=== PATIENT | male | born 1980 | race Two or more races ===

== ENCOUNTER 2016-03-15 20:22 | Emergency (ER) | payer SELFPAY ==
[2016-03-15 20:33] VITALS: TEMP 98.1; BMI 25.0
--- NOTE | 2016-03-15 20:39 | EDPRACDOC ---
- General Information Chief Complaint: Chest Pain Stated Complaint: CHEST PAIN Information Source: Patient Mode of Arrival: Car Home Medications: Home Medications Ibuprofen Tablet [Motrin] 600 mg PO Q6 #30 tablet 02/24/16 Ketorolac Tromethamine [Toradol] 10 mg PO Q6H PRN #10 tab 03/15/16 Allergies/Adverse Reactions: Allergies Allergy/AdvReac Type Severity Reaction Status Date / Time shellfish derived Allergy Severe throat Verified 02/24/16 17:55 edema iodine Allergy Hives* Verified 02/24/16 17:55 - History of Present Illness Onset: long time HPI: 3 TIMES A DAY, NEARLY EVERY DAY FOR THE PAST 6 MONTHS. MULTIPLE ED VISITS FOR THE SAME WITHOUT A DIAGNOSIS BEEN MADE. HAS FOLLOW-UP WITH CARDIOLOGY WHICH WAS UNREVEALING WELL. NO ALLEVIATING OR AGGRAVATING FACTORS, NO PALPITATIONS, BUT HE DOES FEEL VERY ANXIOUS WITH THIS. Chest Pain Location: Reports: Substernal Pain Radiation: Reports: None Symptoms Occur: Reports: Gradually, At Rest, With light exertion ED Past Medical History - History Reviewed Yes Nurses notes reviewed and agree except as marked - Patient Medical History Psychological History: Reports: Depression - Social Medical History Smoking Status: Former smoker ETOH: None Substance Abuse: None Lives With: Significant Other Lives In: Home EDM Review of Systems - Review of Systems ROS Negative Except as Marked: Yes All systems reviewed and were negative except as marked - Physical Exam Constitutional: Alert (Awake), Distress (ANXIOUS). negative: Well nourished, Well appearing Oriented to: Time, Person, Place Last recorded Vital Signs: Last Vital Signs Temp 98.1 F 03/15/16 20:25 Pulse 87 03/15/16 20:25 Resp 20 03/15/16 20:25 BP 137/82 03/15/16 20:34 Pulse Ox 100 03/15/16 20:25 Oxygen Pulse Oxygen Saturation 100 O2 Device Nasal Cannula Oxygen Flow Rate Fraction of Inspired Oxygen ( FIO2) - HEENT Head: Normal ( normocephalic) Eye Exam: Normal (PERRL, EOMI, Sclera white) Oropharynx: Normal (Pharynx:Moist without exudate,Gums-no swelling) Nose: No Symptoms Reported (septum midline) Neck: Normal (FROM, trachea at midline) - Respiratory/Cardiovascular Respiratory: Normal - CTA (BBS clear to auscultation without adventitious sounds ) Cardiovascular: Normal (RRR without murmur, gallop or rub) - GI Auscultation: Normal (NABS) Palpation: Normal (Soft,No rebound or guarding, non distended) Tenderness: Non tender Pete's Sign: Negative - Musculoskeletal Back: Normal (Non-Tender) Extremities: Normal (Normal tone, Pulses 2+ No cyanosis or edema, FROM) - Integumentary Skin: Normal, Warm, Dry Lymphatics: Normal (no adenopathy) - Neurologic Memory Impaired: Normal Motor Function: Normal (Normal tone, Pulses 2+ No cyanosis or edema, FROM) Cranial Nerve: Normal (CN II-X11 intact sensation, strength 5/5) Cerebellar: Normal Mood Description: Normal Perception: Normal - Action ASA given in the ED: No Aspirin therapy held due to: Other-specify below* - Results 03/15/16 20:36 03/15/16 20:36 - EKG EKG #1 EKG Time: 20:31 -: Yes EKG interpreted by me Rate: bpm: 97 [place]: Normal Rhythm: NSR Block: 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) Hypertrophy: None ST: Normal Comparison: 12/25/14 (NO SIG CHANGE) - Diagnostic Imaging Chest Image interpreted by: , Radiologist Patient Name: CIELO CORNEJO Courtesy Copy to: Diagnostic Imaging Report [facility] [address] [id number] [phone] Diagnostic Imaging Services Courtesy Copy to: Diagnostic Imaging Report Patient Name: CIELO CORNEJO LOC: ED : 1980 AGE: 35 Order Date:03/15/16 Date of Service:10/22 Report # [id number] Ord Physician: Katie Myles MD Exam # [id number] Emergency Physician: Katie Myles MD Exam(s): [id number] CT/CT CHEST W/O CM CLINICAL DATA: Chest pain. Symptoms for 6 months. Nausea and shortness of breath. EXAM: CT CHEST WITHOUT CONTRAST TECHNIQUE: Multidetector CT imaging of the chest was performed following the standard protocol without IV contrast. COMPARISON: Radiographs earlier this day FINDINGS: The heart is normal in size. No mediastinal or evidence of hilar adenopathy. The thoracic aorta is normal in caliber. No periaortic soft tissue stranding. No pleural effusion. Clear lungs without consolidation, pulmonary mass or nodule. No pulmonary edema. No acute abnormality in the included upper abdomen. There are no acute or suspicious osseous abnormalities. IMPRESSION: Unremarkable noncontrast chest CT. No acute process or etiology for chest pain identified. Electronically Signed By: Ariella Banegas M.D. On: 03/15/2016 21:51 Electronically Signed By: Ariella Banegas MD Electronically Signed Date/Time: [id number] Dictate Date/Time: 03/15/162146 Technologist: Trupti Mccabe Transcribed By: Paola Transcribed Date/Time: 03/15/162150 - Departure Disposition: Home Condition: Good Final Diagnosis: Atypical chest pain Instructions: Chest Pain (ED), Chest Wall Pain Education/Counseling Given To: Patient, Significant Other Education/Counseling Given Regarding: Diagnosis, Treatment, Prognosis Referrals: None,No Provider [Primary Care Provider] - One Week Prescriptions: Ketorolac Tromethamine [Toradol] 10 mg PO Q6H PRN #10 tab PRN Reason: Pain
[2016-03-15 20:43] LABS: AUTOMATED BASOPHIL 0.8 % (0-2); AUTOMATED EOSINOPHIL 5.5 % (0-5); AUTOMATED LYMPH 44.9 % (17-44); AUTOMATED MONOCYTE 15.4 % (3-10); AUTOMATED NEUTROPHIL 33.4 % (45-76); MPV 8.2 fL (7.4-10.4)
[2016-03-15 20:53] LABS: BLOOD UREA NITROGEN 17 MG/DL (9-20); CALCIUM 9.4 MG/DL (8.4-10.2); CALCULATED OSMOLALITY 274 MOs/Kg (270-290); CHLORIDE 102 mEq/L (98-107); GLUCOSE 121 MG/DL (70-99); SODIUM LEVEL 141 mEq/L (137-146); TOTAL PROTEIN 7.8 G/DL (6.3-8.2)
[2016-03-15 20:57] LABS: PARTIAL THROMB. TIME 24.7 SEC (22-35)
--- NOTE | 2016-03-15 21:16 | DIRPT ---
CLINICAL DATA: Chest pain EXAM: CHEST 2 VIEW COMPARISON: 02/02/2016 FINDINGS: The heart size and mediastinal contours are within normal limits. Both lungs are clear. The visualized skeletal structures are unremarkable. IMPRESSION: No active cardiopulmonary disease. Electronically Signed By: Bill Roberto M.D. On: 03/15/2016 21:13
--- NOTE | 2016-03-15 21:53 | DIRPT ---
CLINICAL DATA: Chest pain. Symptoms for 6 months. Nausea and shortness of breath. EXAM: CT CHEST WITHOUT CONTRAST TECHNIQUE: Multidetector CT imaging of the chest was performed following the standard protocol without IV contrast. COMPARISON: Radiographs earlier this day FINDINGS: The heart is normal in size. No mediastinal or evidence of hilar adenopathy. The thoracic aorta is normal in caliber. No periaortic soft tissue stranding. No pleural effusion. Clear lungs without consolidation, pulmonary mass or nodule. No pulmonary edema. No acute abnormality in the included upper abdomen. There are no acute or suspicious osseous abnormalities. IMPRESSION: Unremarkable noncontrast chest CT. No acute process or etiology for chest pain identified. Electronically Signed By: Ariella Banegas M.D. On: 03/15/2016 21:51
[2016-03-15 22:45] VITALS: BP 138/78
[2016-03-15 22:50] VITALS: PULSE 86
== END 2016-03-15 22:49 | disposition home or self-care (01) ==
LOC: ED 20:22
DX: R07.89 Other chest pain (principal)
CPT/HCPCS: 36415; 71020; 71250; 80053; 83880; 84484; 85025; 85379; 85610; 85730; 93005; 99283